=== PATIENT | male | born 1945 | race Caucasian/White ===

== ENCOUNTER → 2016-08-19 | Outpatient (CLI) | payer OTHER ==
[~2016-08-19] MED LIST: ACIDOPHILUS1 EAC3; ADULT LOW DOSE81 MG; CARAFATE 1 GM TA1 G1; FISH OIL 1,0001 EAC5; MEGA MULTIVIT1 EAC1; NAPROSYN500 MG; OMEPRAZOLE 20 M20 M1; OPTIFLEX COMPL1 EACH; PSYLLIUM HUSK1 GM; VOLTAREN GEL 1100 G1; XANAX 0.5 MG0.5 MG
== END ==
LOC: CAT 08-15 11:51
DX: R19.00 Intra-abdominal and pelvic swelling, mass and lump, unspecified site (principal); R52 Pain, unspecified

== ENCOUNTER → 2017-03-22 | Outpatient (CLI) | payer OTHER | LOC: RAD 14:46 | DX: S82.892A Other fracture of left lower leg, initial encounter for closed fracture (principal); X58.XXXA Exposure to other specified factors, initial encounter; Y93.89 Activity, other specified; Y92.89 Other specified places as the place of occurrence of the external cause; Y99.8 Other external cause status ==

== ENCOUNTER → 2017-11-02 | Outpatient (CLI) | payer OTHER | LOC: RAD 13:49 | DX: M25.572 Pain in left ankle and joints of left foot (principal); M54.2 Cervicalgia; E11.9 Type 2 diabetes mellitus without complications; E78.5 Hyperlipidemia, unspecified ==

== ENCOUNTER → 2018-09-22 | Outpatient (CLI) | payer OTHER | LOC: RAD 12:41 | DX: M19.071 Primary osteoarthritis, right ankle and foot (principal) ==

== ENCOUNTER → 2019-08-26 | Outpatient (CLI) | payer OTHER | LOC: RAD 10:10 | PROVIDERS: ATTEND Family Medicine | DX: M19.072 Primary osteoarthritis, left ankle and foot (principal) ==